=== PATIENT | female | born 1980 | race Caucasian/White ===

== ENCOUNTER 2017-01-18 07:39 | Emergency (ER) | payer MEDICAID, OTHER ==
--- NOTE | 2017-01-18 08:37 | C.PDOC ---
History Of Present Illness 36 year old female presents to the ED with complaints of sore throat, cough, right ear ache, and nasal congestion for the past 3 days. Patient denies fever, chills, chest pain, or any other complaints at this time. Time Seen by Provider: 01/18/17 08:03 Chief Complaint (Nursing): Flu-like Symptoms History Per: Patient History/Exam Limitations: no limitations Onset/Duration Of Symptoms: Days Current Symptoms Are (Timing): Still Present Location Of Pain: Throat Sick Contacts (Context): None Associated Symptoms: Sore Throat, Cough, Nasal Congestion. denies: Fever, Chills, Vomiting, Diarrhea Ear Symptoms: Left: None, Right: Ear Pain Severity: Mild Past Medical History Reviewed: Historical Data, Nursing Documentation, Vital Signs Vital Signs: Last Vital Signs Temp 97.6 F 01/18/17 09:00 Pulse 61 01/18/17 09:00 Resp 15 01/18/17 09:00 BP 110/68 01/18/17 09:00 Pulse Ox 99 01/18/17 10:46 - Medical History PMH: No Chronic Diseases Family History: States: Unknown Family Hx - Social History Hx Tobacco Use: No Hx Alcohol Use: No Hx Substance Use: No - Immunization History Hx Tetanus Toxoid Vaccination: No Hx Influenza Vaccination: No Hx Pneumococcal Vaccination: No Review Of Systems Except As Marked, All Systems Reviewed And Found Negative. Constitutional: Negative for: Fever, Chills ENT: Positive for: Ear Pain (+Right ear ache), Nose Congestion, Throat Pain (+ Sore throat). Negative for: Ear Discharge Cardiovascular: Negative for: Chest Pain Respiratory: Positive for: Cough. Negative for: Shortness of Breath, Sputum Neurological: Negative for: Weakness, Numbness Physical Exam - Physical Exam Appears: Non-toxic, No Acute Distress Skin: Normal Color, Warm, Dry Head: Atraumatic, Normacephalic Eye(s): bilateral: Normal Inspection Ear(s): Left: Normal, Right: TM Erythema Nose: Discharge (+Clear nasal discharge) Oral Mucosa: Moist Throat: Normal, No Erythema, No Exudate Neck: Supple Chest: Symmetrical, No Deformity Cardiovascular: Rhythm Regular, No Murmur Respiratory: Normal Breath Sounds, No Accessory Muscle Use, No Rales, No Rhonchi , No Wheezing Gastrointestinal/Abdominal: Soft Extremity: Normal ROM, No Deformity Neurological/Psych: Oriented x3, Normal Speech, Normal Cognition ED Course And Treatment O2 Sat by Pulse Oximetry: 99 (Room air) Pulse Ox Interpretation: Normal Progress Note: Patient treated with Zithromax. On reassessment, patient is resting comfortably, and is in no acute distress. Rx given and patient advised to follow up with her PMD in 1-2 days. Disposition - Disposition Disposition: HOME/ ROUTINE Disposition Time: 08:34 Condition: STABLE Additional Instructions: Follow up with your PMD within 1-2 days. Return to ED if feel worse. Prescriptions: Fluticasone Nasal [Flonase] 1 spr NS BID #1 spr Ibuprofen [Motrin Tab] 600 mg PO Q8 #30 tab Pseudoephedrine HCl [Sudafed 12-Hour] 120 mg PO BID #10 tablet.er Azithromycin [Zithromax] 250 mg PO DAILY #4 tab Instructions: Otitis Media (ED), Upper Respiratory Infection (ED) - Clinical Impression Clinical Impression: Upper respiratory infection, Otitis media - PA / [employer] / Resident Statement MD/DO has reviewed & agrees with the documentation as recorded. - Scribe Statement The provider has reviewed the documentation as recorded by the Scribe Tiffanie Humphries. All medical record entries made by the Scribe were at my direction and personally dictated by me. I have reviewed the chart and agree that the record accurately reflects my personal performance of the history, physical exam, medical decision making, and the department course for this patient. I have also personally directed, reviewed, and agree with the discharge instructions and disposition.
[2017-01-18 09:01] VITALS: BP 110/68; PULSE 61; RESP 15; TEMP 97.6
[2017-01-18 10:44] VITALS: O2SAT 99
== END 2017-01-18 09:00 | disposition home or self-care (01) ==
LOC: C.ER 07:39
DX: J06.9 Acute upper respiratory infection, unspecified (principal); H66.91 Otitis media, unspecified, right ear

== ENCOUNTER 2017-11-04 07:08 | Emergency (ER) | payer MEDICAID ==
[2017-11-04 07:34] VITALS: O2SAT 99
--- NOTE | 2017-11-04 08:46 | C.PDOC ---
History Of Present Illness Patient is a 36 year old female, otherwise well, who presents to the ER complaining of congestion and body aches since Sunday. No fever or chills. Patient reports taking Mucinex with no relief. Did not receive flu shot this year. Time Seen by Provider: 11/04/17 08:33 Chief Complaint (Nursing): Flu-like Symptoms History Per: Patient History/Exam Limitations: no limitations Onset/Duration Of Symptoms: Days (x2) Current Symptoms Are (Timing): Still Present Location Of Pain: Diffuse Myalgias Past Medical History Reviewed: Historical Data, Nursing Documentation, Vital Signs Vital Signs: Last Vital Signs Temp 98.3 F 11/04/17 07:31 Pulse 88 11/04/17 07:31 Resp 19 11/04/17 07:31 BP 113/66 11/04/17 07:31 Pulse Ox 99 11/04/17 08:50 - Medical History PMH: No Chronic Diseases Family History: States: No Known Family Hx - Social History Hx Tobacco Use: No Hx Alcohol Use: No Hx Substance Use: No - Immunization History Hx Tetanus Toxoid Vaccination: No Hx Influenza Vaccination: No Hx Pneumococcal Vaccination: No Review Of Systems Except As Marked, All Systems Reviewed And Found Negative. Constitutional: Positive for: Other (body aches). Negative for: Fever, Chills ENT: Positive for: Nose Discharge, Nose Congestion Physical Exam - Physical Exam Appears: Non-toxic, No Acute Distress, Other (Teary eyed) Skin: Warm, Dry, Other (Appears flushed) Head: Atraumatic, Normacephalic Eye(s): bilateral: Normal Inspection, PERRL, EOMI Nose: Discharge (nasal discharge noted, + nasal congestion) Oral Mucosa: Moist Neck: Normal ROM, Supple Chest: Symmetrical Cardiovascular: Rhythm Regular, No Murmur Respiratory: Normal Breath Sounds, No Accessory Muscle Use, No Rhonchi, No Wheezing Gastrointestinal/Abdominal: Soft, No Tenderness Back: Normal Inspection, No CVA Tenderness, No Vertebral Tenderness Extremity: Bilateral: Atraumatic, Normal Color And Temperature, Normal ROM Neurological/Psych: Oriented x3, Normal Speech ED Course And Treatment O2 Sat by Pulse Oximetry: 99 (RA) Pulse Ox Interpretation: Normal Medical Decision Making Medical Decision Making: Time: 8:45 Initial Plan: * Tylenol 975 mg * Tamiflu 75 mg * Motrin 600 mg Disposition Counseled Patient/Family Regarding: Diagnosis, Need For Followup, Rx Given - Disposition Referrals: [facility] [Outside] Disposition: HOSPITALIZED Disposition Time: 09:29 Condition: STABLE Prescriptions: Ibuprofen [Motrin] 600 mg PO TID #15 tab Oseltamivir [Tamiflu] 1 cap PO BID #10 cap Instructions: Influenza (ED) Forms: [facility] ([place]), General Discharge Instructions, Work Excuse - POA Present On Arrival: None - Clinical Impression Clinical Impression: Influenza-like illness - Scribe Statement The provider has reviewed the documentation as recorded by the Sneha Pennington Provider Attestation: All medical record entries made by the Sneha were at my direction and personally dictated by me. I have reviewed the chart and agree that the record accurately reflects my personal performance of the history, physical exam, medical decision making, and the department course for this patient. I have also personally directed, reviewed, and agree with the discharge instructions and disposition.
[2017-11-04 09:50] VITALS: BP 110/66; PULSE 73; RESP 18; TEMP 98
== END 2017-11-04 09:52 | disposition home or self-care (01) ==
LOC: C.ER 07:08
DX: J11.1 Influenza due to unidentified influenza virus with other respiratory manifestations (principal)